=== PATIENT | male | born 1985 | race African-American/Black ===

== ENCOUNTER 2017-08-04 21:23 | Emergency (ER) | payer OTHER ==
[2017-08-04 21:57] VITALS: BP 146/88
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
--- NOTE | 2017-08-04 23:35 | RADIOLOGY REPORT (SQ) ---
EXAM DESCRIPTION: KNEE LEFT 4 VIEW CLINICAL HISTORY: 31 years, Male, left knee pain COMPARISON: None. Findings: Bones, joints, and soft tissues of KNEE LEFT 4 VIEW appear intact. IMPRESSION: No acute findings.
== END 2017-08-05 00:22 | disposition home or self-care (01) ==
LOC: ER 21:23
DX: S46.812A Strain of other muscles, fascia and tendons at shoulder and upper arm level, left arm, initial encounter (principal); M25.562 Pain in left knee; V89.2XXA Person injured in unspecified motor-vehicle accident, traffic, initial encounter
CPT/HCPCS: 99283

== ENCOUNTER 2018-09-23 10:14 | Emergency (ER) | payer BC ==
--- NOTE | 2018-09-23 11:27 | RADIOLOGY REPORT (SQ) ---
EXAM DESCRIPTION: FOOT LEFT COMPLETE COMPLETED DATE/TIME: 09/23/2018 11:13 am REASON FOR STUDY: left foot pain COMPARISON: None. NUMBER OF VIEWS: Three views. TECHNIQUE: AP, lateral and oblique radiographic images acquired of the left foot. LIMITATIONS: None. FINDINGS: MINERALIZATION: Normal. BONES: No acute fracture or dislocation. No worrisome bone lesions. JOINTS: No effusions. Large dorsal osteophyte of the naviculocuneiform articulations seen on lateral view. SOFT TISSUES: No soft tissue swelling. No foreign body. OTHER: No other significant finding. IMPRESSION: No fracture dislocation of the left foot. No radiographic abnormality of the 1st digit to explain pain. There is a large dorsal osteophyte of the naviculocuneiform articulations seen on l ateral view, advanced for patient age. TECHNICAL DOCUMENTATION: JOB ID: [id number] [employer]- All Rights Reserved Reading location - IP/workstation name: [email or web address]
--- NOTE | 2018-09-23 11:40 | ER Document Report ---
HPI - HPI Time Seen by Provider: 09/23/18 10:43 Pain Level: 3 Notes: Patient is an otherwise healthy 32-year-old male presented to the urgency department with chief complaint of left foot pain. Patient reports no specific injury but states that every time he plays basketball he has pain to the dorsal surface of his foot. Patient shows a large lump to this area. He states this lump comes and goes. He has not tried taking any pain medications. - MUSCULOSKELETAL Musculoskeletal: REPORTS: Extremity pain - left foot Past Medical History - General Information source: Patient - Social History Smoking Status: Never Smoker Frequency of alcohol use: None Drug Abuse: None Family History: Reviewed & Not Pertinent Patient has suicidal ideation: No Patient has homicidal ideation: No - Medical History Medical History: Negative Renal/ Medical History: Denies: Hx Peritoneal Dialysis Surgical Hx: Negative - Immunizations Immunizations up to date: Yes Vertical Provider Document - CONSTITUTIONAL Notes: PHYSICAL EXAMINATION: GENERAL: Well-appearing, well-nourished and in no acute distress. HEAD: Atraumatic, normocephalic. EYES: Pupils equal round extraocular movements intact, conjunctiva are normal. ENT: Nares patent NECK: Normal range of motion LUNGS: No respiratory distress Musculoskeletal: Normal range of motion, no erythema, ecchymosis or swelling noted to left foot, there is a bony prominence over the dorsal surface near the fourth metatarsal. Strong dorsalis pedis pulse. NEUROLOGICAL: Normal speech, normal gait. PSYCH: Normal mood, normal affect. SKIN: Warm, Dry, normal turgor, no rashes or lesions noted. - INFECTION CONTROL TRAVEL OUTSIDE OF THE [place] IN LAST 30 DAYS: No Course - Re-evaluation Re-evalutation: X-ray shows no acute fracture dislocation. A bone spur is noted. Patient given discharge instructions regarding bone spurs and encouraged to take ibuprofen for pain. Patient verbalizes understanding and agreement with plan. - Vital Signs Vital signs: Temp Pulse Resp BP Pulse Ox 97.5 F 57 L 16 143/81 H 100 09/23/18 10:23 09/23/18 10:23 09/23/18 10:23 09/23/18 10:23 09/23/18 10:23 Discharge - Discharge Clinical Impression: Bone spur Condition: Stable Disposition: HOME, SELF-CARE Additional Instructions: You have a bone spur on the top of your foot. This is a bony growth that developed on the edge of the bone. When this caused symptoms please take [id number] pain medication such as naproxen, ibuprofen or Tylenol to help relieve the pain. If you have persistent pain or swelling or experience difficulty with range of motion please follow-up with orthopedics. If the bone spur become so bothersome you may consider having surgery. Forms: Return to Work Referrals: KENNETH SOMMERS MD [ACTIVE STAFF] - Follow up as needed
[2018-09-23 11:50] VITALS: BP 146/87
== END 2018-09-23 11:50 | disposition home or self-care (01) ==
LOC: ER 10:14
DX: M77.9 Enthesopathy, unspecified (principal); M79.672 Pain in left foot; X58.XXXA Exposure to other specified factors, initial encounter; Y93.67 Activity, basketball
CPT/HCPCS: 99283

== ENCOUNTER 2019-01-06 11:29 | Emergency (ER) | payer BC, OTHER ==
[2019-01-06 11:34] VITALS: BP 132/75
--- NOTE | 2019-01-06 11:55 | ER Document Report ---
ED Medical Screen (RME) - General Chief Complaint: STD Exposure Stated Complaint: STD CHECK Time Seen by Provider: 01/06/19 11:47 Mode of Arrival: Ambulatory Information source: Patient Notes: 33-year-old male presents emergency department with reports that couple years ago he went to [facility]. He returned today and he was told he could not participate because he has a blood test that came back positive for syphilis. Patient denies symptoms at this time. Denies penile discharge denies testicular swelling. Denies pain with void. RPR ordered as well as urine chlamydia gonorrhea. RPR will be run on Thursday and patient will receive results at that time. Patient informed. I have greeted and performed a rapid initial assessment of this patient. A comprehensive ED assessment and evaluation of the patient, analysis of test results and completion of the medical decision making process will be conducted by additional ED providers. Dictation of this chart was performed using voice recognition software; therefore, there may be some unintended grammatical errors. TRAVEL OUTSIDE OF THE [place] IN LAST 30 DAYS: No - Related Data Allergies/Adverse Reactions: No Known Allergies Allergy (Verified 01/06/19 11:46) Past Medical History - Social History Chew tobacco use (# tins/day): No Frequency of alcohol use: None Drug Abuse: None Renal/ Medical History: Denies: Hx Peritoneal Dialysis - Immunizations Immunizations up to date: Yes Physical Exam - Vital signs Vitals: Temp Pulse Resp BP Pulse Ox 98.3 F 72 16 132/75 H 97 01/06/19 11:33 01/06/19 11:33 01/06/19 11:33 01/06/19 11:33 01/06/19 11:33 Course - Vital Signs Vital signs: Temp Pulse Resp BP Pulse Ox 98.3 F 72 16 132/75 H 97 01/06/19 11:33 01/06/19 11:33 01/06/19 11:33 01/06/19 11:33 01/06/19 11:33
[2019-01-06] MEDS ORDERED: PENICILLIN G BENZATHINE 1.2 MILLION UNIT/2 ML DISP.SYRIN IM ONE (13:09)
[2019-01-06] MEDS ORDERED: CEFTRIAXONE INJ 250 MG VIAL IM ONE (13:11)
[2019-01-06] MEDS ORDERED: AZITHROMYCIN 250 MG TABLET PO ONE (13:11)
--- NOTE | 2019-01-06 13:16 | ER Document Report ---
HPI - HPI Time Seen by Provider: 01/06/19 11:47 Pain Level: Denies Notes: Patient is a 33-year-old male who presents for syphilis test because he did try to donate blood, but the center said that he could not as he tested positive for syphilis a couple years ago. Patient states that he has not noticed any symptoms, rash, lesion, or discharge. He is able to eat and drink without difficulty. He is urinating normally and having normal bowel movements. Denies drug allergies. He has no other concerns or complaints. Denies any headache, fever, URI, sore throat, chest pain, palpitations, syncope, cough, shortness of breath, wheeze, dyspnea, abdominal pain, nausea/vomiting/diarrhea, urinary retention, dysuria, hematuria, joint pains, or rash. - ROS Systems Reviewed and Negative: Yes All other systems reviewed and negative - REPRODUCTIVE Reproductive: DENIES: : Past Medical History - General Information source: Patient - Social History Smoking Status: Unknown if Ever Smoked Chew tobacco use (# tins/day): No Frequency of alcohol use: None Drug Abuse: None Family History: Reviewed & Not Pertinent Patient has suicidal ideation: No Patient has homicidal ideation: No Renal/ Medical History: Denies: Hx Peritoneal Dialysis - Immunizations Immunizations up to date: Yes Vertical Provider Document - CONSTITUTIONAL Agree With Documented VS: Yes Notes: PHYSICAL EXAMINATION: GENERAL: Well-appearing, well-nourished and in no acute distress. HEAD: Atraumatic, normocephalic. EYES: Pupils equal round and reactive to light, extraocular movements intact, sclera anicteric, conjunctiva are normal. ENT: Nares patent and without discharge. oropharynx clear without exudates. No tonsilar hypertrophy or erythema. Moist mucous membranes. NECK: Normal range of motion, supple without lymphadenopathy LUNGS: Breath sounds clear to auscultation bilaterally and equal. No wheezes rales or rhonchi. HEART: Regular rate and rhythm without murmurs, rubs, gallops. ABDOMEN: Soft, nontender, nondistended abdomen. No guarding, no rebound. Normal bowel sounds present. No CVA tenderness bilaterally.. : No obvious rash, lesion, ulceration. No urethral discharge. Nontender to palpation throughout. No erythema, swelling, necrosis, warmth. Musculoskeletal: FROM to passive/active. Strength 5+/5. Extremities: No cyanosis, clubbing, or edema b/l. Peripheral pulses 2+. Capillary refill less than 3 seconds. NEUROLOGICAL: Normal speech, normal gait. PSYCH: Normal mood, normal affect. SKIN: Warm, Dry, normal turgor, no rashes or lesions noted. - INFECTION CONTROL TRAVEL OUTSIDE OF THE [place] IN LAST 30 DAYS: No Course - Re-evaluation Re-evalutation: 01/06/19 13:13 Patient is an afebrile, well-hydrated, 33-year-old male who presents for lab testing. Vitals are acceptable without significant tachycardia, tachypnea, or hypoxia. PE is otherwise unremarkable. Patient is nontoxic-appearing and is tolerating p.o. without difficult he. Syphilis test was drawn tomorrow. Chlamydia and gonorrhea tests are pending. Patient is requesting to have penicillin and the medications for chlamydia/gonorrhea as well even though he is currently asymptomatic with an unremarkable exam. Risk and benefit reviewed with the medications as well as possible side effects. Patient to monitor symptoms for acute pathology and follow-up with the health department in the next few days. Return to the ED with any other worsening/concerning symptoms. Low suspicion for any other systemic emergent condition at this time. Patient is in agreement. - Vital Signs Vital signs: Temp Pulse Resp BP Pulse Ox 98.3 F 72 16 132/75 H 97 01/06/19 11:33 01/06/19 11:33 01/06/19 11:33 01/06/19 11:33 01/06/19 11:33 Discharge - Discharge Clinical Impression: Laboratory test, Worried well Condition: Stable Disposition: HOME, SELF-CARE Additional Instructions: Maintain fluid intake Proper hygienic technique Keep the skin clean Safe sexual practices with condoms everytime Tylenol/ibuprofen as needed Check in with the health department this week* Your chlamydia/gonorrhea tests are pending and you will be notified if positive results; you may call in 1 day for the results as well F/u with your PCM in 3-5 days for a recheck Return to the ED with any development of LOPES/fever, trouble with vision, eye redness, worsening pain, urethral discharge, urinary retention, blood in the urine, flank pain, abdominal pain, n/v, Chest Pain, shortness of breath, joint pains, trouble breathing, or any other worsening/concerning symptoms as needed otherwise. Forms: Elevated Blood Pressure Referrals: HEALTH DEPT,[facility] [NO LOCAL MD] - Follow up in 3-5 days
[2019-01-06 13:46] LABS: CHLAM PCR NOT DETECTED (NOT DETECT)
== END 2019-01-06 14:05 | disposition home or self-care (01) ==
LOC: ER 11:29
DX: Z11.3 Encounter for screening for infections with a predominantly sexual mode of transmission (principal); Z71.1 Person with feared health complaint in whom no diagnosis is made
CPT/HCPCS: 99283; 96372; 36415; 86592; 87491; 87591; J0561; J0696

== ENCOUNTER 2019-06-21 09:33 | Emergency (ER) | payer BC ==
[2019-06-21 10:11] VITALS: BP 139/91
--- NOTE | 2019-06-21 11:03 | ER Document Report ---
HPI - HPI Patient complains to provider of: right hand Time Seen by Provider: 06/21/19 10:55 Onset: Other - 4 days Onset/Duration: Persistent Quality of pain: Achy Pain Level: 1 Context: This 33-year-old male presents emergency department with complaints of right dorsal hand pain for the past 4 days. 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 He is not taking anything for the pain. Denies prior history of injury to the hand. No other complaints such as fever vomiting diarrhea. No pain at this time. Patient is left-handed. Associated Symptoms: None Exacerbated by: Movement Relieved by: Denies Similar symptoms previously: No Recently seen / treated by doctor: No - REPRODUCTIVE Reproductive: DENIES: : Past Medical History - General Information source: Patient - Social History Smoking Status: Former Smoker Cigarette use (# per day): No Frequency of alcohol use: None Drug Abuse: None Occupation: [employer] Family History: Reviewed & Not Pertinent Patient has suicidal ideation: No Patient has homicidal ideation: No - Medical History Medical History: Negative Renal/ Medical History: Denies: Hx Peritoneal Dialysis Surgical Hx: Negative - Immunizations Immunizations up to date: Yes Vertical Provider Document - CONSTITUTIONAL Agree With Documented VS: Yes Exam Limitations: No Limitations General Appearance: WD/WN, No Apparent Distress - INFECTION CONTROL TRAVEL OUTSIDE OF THE [place] IN LAST 30 DAYS: No - HEENT HEENT: Atraumatic, Normocephalic - NECK Neck: Supple - RESPIRATORY Respiratory: No Respiratory Distress - CARDIOVASCULAR Cardiovascular: Regular Rate - MUSCULOSKELETAL/EXTREMETIES Musculoskeletal/Extremeties: MAEW, FROM, Tender - right dorsal hand with movement. Cap refill less than 2 seconds radial pulse +3 no obvious deformity good spin tank tender. - NEURO Level of Consciousness: Awake, Alert, Appropriate Motor/Sensory: No Motor Deficit - DERM Integumentary: Warm, Dry Course - Re-evaluation Re-evalutation: 06/21/19 11:19 Patient complains of right hand pain with no trauma. 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 Hand x-ray negative. Patient was instructed on ibuprofen and to wear gloves return for concerns. 06/21/19 11:33 Hand X-Ray 06/21/19 10:58 IMPRESSION: OLD HEALED FRACTURE OF THE 3RD METACARPAL. NO OTHER SIGNIFICANT FINDINGS. - Vital Signs Vital signs: Temp Pulse Resp BP Pulse Ox 97.8 F 62 18 139/91 H 99 06/21/19 10:10 06/21/19 10:10 06/21/19 10:10 06/21/19 10:10 06/21/19 10:10 - Diagnostic Test Radiology reviewed: Image reviewed, Reports reviewed Discharge - Discharge Clinical Impression: Right hand pain Condition: Stable Disposition: HOME, SELF-CARE Instructions: Use of [id number] Ibuprofen ([facility]) Additional Instructions: *You have been evaluated for right hand pain *Your hand x-ray was negative for an acute fracture, the x-ray did note a old healed fracture of the third metacarpal *Rest/Ice/Elevate your hand *Follow up with orthopedics for continued pain *Take ibuprofen as indicated for pain *Return to ED for worsening condition, changes, needs Monitor your blood pressure. Your blood pressure was elevated today. This may be because you were anxious, in pain or because you need medication. It is important to follow up with your primary care provider for full evaluation. Forms: Elevated Blood Pressure, Return to Work Referrals: ORTHOPEDICS [Provider Group] - Follow up as needed [facility] [Provider Group] - Follow up in 1 week
--- NOTE | 2019-06-21 11:32 | RADIOLOGY REPORT (SQ) ---
EXAM DESCRIPTION: HAND RIGHT 3 VIEWS COMPLETED DATE/TIME: 06/21/2019 11:17 am REASON FOR STUDY: hand pain COMPARISON: None. EXAM PARAMETERS: NUMBER OF VIEWS: Three views. TECHNIQUE: AP, lateral and oblique radiographic images acquired of the right hand. LIMITATIONS: None. FINDINGS: MINERALIZATION: Normal. BONES: No acute fracture or dislocation. Old healed fracture of the 3rd metacarpal No worrisome bone lesions. No significant osteophytes. JOINTS: No erosions. No arabella-articular osteopenia. No chondrocalcinosis. SOFT TISSUES: No swelling. No calcifications. OTHER: No other significant finding. IMPRESSION: OLD HEALED FRACTURE OF THE 3RD METACARPAL. NO OTHER SIGNIFICANT FINDINGS. TECHNICAL DOCUMENTATION: JOB ID: [id number] [address]- All Rights Reserved Reading location - IP/workstation name: [email or web address]
== END 2019-06-21 11:54 | disposition home or self-care (01) ==
LOC: ER 09:33
DX: M79.641 Pain in right hand (principal); Z87.891 Personal history of nicotine dependence
CPT/HCPCS: 99283